=== PATIENT | female | born 1950 | race Caucasian/White ===

== ENCOUNTER 2017-02-16 05:20 | Emergency (ER) | payer MEDICARE, OTHER ==
--- NOTE | 2017-02-16 05:34 | ERNOTE ---
Upper Extremity HPI - General Extremities Pain Location: shoulder: left Time Seen by Provider: 02/16/17 05:25 Source: patient Exam Limitations: no limitations - Immun/Allergies/Home Medications Immunizations: IMMUNIZATION HX Immunizations Up to Date Yes History of Influenza Vaccine No Hx Pneumococcal Vaccination Yes Allergies/Adverse Reactions: Allergies Allergy/AdvReac Type Severity Reaction Status Date / Time methotrexate AdvReac Verified 02/16/17 05:30 Home Medications: HOME MEDICATIONS Atorvastatin Calcium [Lipitor] 10 mg PO DAILY 03/10/12 [Last Taken Unknown] Montelukast Sodium [Singulair] 10 mg PO HS 03/10/12 [Last Taken Unknown] Insulin Glargine,Hum.rec.anlog [Lantus Solostar] 50 unit SQ HS 11/11/13 [Last Taken Unknown] predniSONE [Prednisone] 5 mg PO DAILY 11/11/13 [Last Taken Unknown] Glucagon,Human Recombinant [Glucagen] 1 mg IJ DAILY PRN #1 11/27/14 [Last Taken Unknown] Cholecalciferol (Vitamin D3) [Vitamin D-3] 2,000 unit PO DAILY #90 tablet [Last Taken Unknown] Warfarin Sodium [Coumadin] 4 mg PO SUMOTUTHFR 12/13/14 [Last Taken Unknown] Warfarin Sodium [Coumadin] 6 mg PO WESA 12/13/14 [Last Taken Unknown] Furosemide [Lasix] 80 mg PO DAILY 12/10/15 [Last Taken Unknown] Insulin Lispro [Humalog] 10 units SC AC 12/10/15 [Last Taken Unknown] Adalimumab [Humira] 40 mg SQ Q14D 12/16/16 [Last Taken Unknown] Bupropion HCl [Wellbutrin Xl] 300 mg PO DAILY 12/16/16 [Last Taken Unknown] traMADol HCL [Ultram] 50 mg PO BID PRN #10 tab 02/16/17 [Last Taken Unknown] - History of Present Illness Narrative: Pt had onset of left shoulder pain last evening, no known trauma or injury. Occurred: yesterday Location of Incident: home Severity: moderate Method of Injury: Reports: unknown Loss of Consciousness: Reports: no loss of consciousness Modifying Factors - (Improves): Reports: immobilization Modifying Factors - (Worsens): Reports: movement Other Injuries: Reports: none Review of Systems - Review of Systems Constitutional: Absent: recent illness EYE: Present: no symptoms reported ENT: Present: no symptoms reported Respiratory: Absent: shortness of breath Cardiology: Absent: chest pain Gastrointestinal/Abdominal: Present: no symptoms reported Genitourinary: Present: no symptoms reported Musculoskeletal: Present: See HPI. Absent: back pain, neck pain Skin: Absent: rash Neurological: Present: no symptoms reported Endocrine: Present: no symptoms reported Hematologic/Lymphatic: Present: no symptoms reported Psych: Present: no symptoms reported - Patient's Past Medical History Patient History - Medical: Anxiety, Diabetes Type 2, Renal Disease, Rheumatoid Arthritis Patient History - Cardiac/Respiratory: CHF, COPD, Home O2 Use, CPAP/BiPAP Home Use, Sleep Apnea Patient History - Cancer: No Hx of Cancer Patient History - Surgical Procedures: Colonoscopy, D & C, T & A, Other Patient History - Other: None - Family History Mother Family History - Medical: Diabetes Type 2, Renal Disease Family History - Cardiac/Respiratory: Hypertension Father Family History - Medical: - Social History Living Situations: alone Abuse History: No History of abuse Psych History: Hx of Anxiety Smoking Status: Never smoker Alcohol Use: none Drug Use: none - Immunizations Immunizations Up to Date: Yes Hx Pneumococcal Vaccination: Yes History of Influenza Vaccine: No Physical Exam - Physical Exam General Appearance: Present: wd/wn, alert, no apparent distress Head Exam: Present: normal inspection, no evidence of injury Ears, Nose, Throat: Present: normal ENT inspection Neck: Present: normal inspection, nontender Respiratory: Present: no respiratory distress, no accessory muscle use Back Exam: Present: normal inspection, no vertebral tenderness Extremity Exam: Present: normal except - - left shoulder, decreased range of motion - left shoulder- minimal movement actively, 90 degree flexion passively. , other - left shoulder musculature tender generally. no point tenderness. Neurological Exam: Present: alert, oriented, normal mood/affect, no motor/ sensory deficits Skin Exam: Present: normal color, warm/dry Lymphatic Exam: Present: no adenopathy ED Progress - Vital Signs Vital Signs: Vital Signs 02/16/17 05:22 Temperature 36.6 C Pulse Rate 94 Respiratory 18 Rate Blood Pressure 146/78 O2 Sat by Pulse 96 Oximetry - Progress/Reassessment Chief Complaint: Upper Extremity Injury/Problem Departure Clinical Impression: Strain of left shoulder Qualifiers: Encounter type: initial encounter Qualified Code(s): S46.912A - Strain of unspecified muscle, fascia and tendon at shoulder and upper arm level, left arm , initial encounter - Departure Disposition: Home Follow Up Needed Condition: Good Instructions: Cryotherapy Additional Instructions: See your primary care provider or orthopedics in follow up. Take pain medication as directed and as needed Referrals: Ranjith Ferguson MD [Primary Care Provider] - Prescriptions: traMADol HCL [Ultram] 50 mg PO BID PRN #10 tab PRN Reason: Pain
[2017-02-16] MEDS ORDERED: NALBUPHINE HCL 20 MG/ML AMPUL IM ONE (06:33)
[2017-02-16] MEDS ORDERED: NALBUPHINE HCL 20 MG/ML AMPUL ONE (06:43)
[2017-02-16 06:47] VITALS: BP 144/78
== END 2017-02-16 06:54 | disposition home or self-care (01) ==
LOC: ER 05:20
DX: S46.912A Strain of unspecified muscle, fascia and tendon at shoulder and upper arm level, left arm, initial encounter (principal); Z79.01 Long term (current) use of anticoagulants; I50.9 Heart failure, unspecified; E11.9 Type 2 diabetes mellitus without complications; Z79.4 Long term (current) use of insulin; M06.9 Rheumatoid arthritis, unspecified

== ENCOUNTER 2019-05-15 15:19 | Inpatient (IN) ==
[2019-05-15 16:10] LABS: Hematocrit 40.4 % (37.0-47.0); Mean Cell Volume 86.3 fl (78-100); Mean Corpuscular Hemoglobin 25.6 pg (27-31); Mean Corpuscular Hgb Conc 29.7 g/dl (32-36); Mean Platelet Volume 9.2 fl (8-12.5); Neutrophil # 6.3 K/mm3 (1.3-6.0); Neutrophil % 75.8 % (42-75.0); Platelet Count 267 K/mm3 (150-450); Red Blood Count 4.68 M/mm3 (4.2-5.4); Red Cell Distribution Width 18.5 % (11.5-14.0); White Blood Count 8.3 K/mm3 (4.0-10.5)
[2019-05-15 16:26] LABS: Prothrombin Time (Patient) 13.1 Seconds (9.1-10.7)
[2019-05-15 16:27] LABS: INR 1.34 INR (0.92-1.08)
[2019-05-15 16:34] LABS: Iron 30 mcg/dL (35-120); Transferrin Sat. (% Sat.) 13 % (15-55)
[2019-05-15 16:56] LABS: ALT 13 U/L (19-67); AST 14 U/L (0-48); Albumin * 2.5 gm/dl (3.4-5.0); Alkaline Phosphatase * 103 U/L (50-170); Anion Gap 8.6 mmol/L (6.8-13.8); BNP * 1861 pg/mL (5-325); BUN/Creatinine Ratio 20.1 (9.0-21.6); Bilirubin, Total 0.3 mg/dL (0.0-1.1); Blood Urea Nitrogen 33 mg/dL (3-23); Ca. Corrected For Albumin 10.6 mg/dL (8.4-10.2); Calcium * 9.7 mg/dL (7.9-10.9); Carbon Dioxide 35.2 mmol/L (24-32.6); Chloride 98 mmol/L (97-106); Ferritin 69 ng/mL (8-252); Glucose * 174 mg/dL (70-110); Potassium 3.8 mmol/L (3.4-4.6); Sodium 138 mmol/L (132-142); Troponin I Less than 0.017 ng/mL (0.00-0.10)
--- NOTE | 2019-05-15 17:09 | PN ---
Progess Note - Interim Date: 05/15/19 Time: 17:09 Narrative: 05/15/19 17:16 I saw and examined Edilia Delgado on the [facility] floor on the afternoon of 05/15/2019. Laboratories are still pending. My clinical assessment and plans are not different. My clinical notes will serve as my H&P for this admission.
[2019-05-15] MEDS: ALBUTEROL SULFATE/IPRATROPIUM 3 ML NEBU IH SCH ×2 (18:03→22:14)
[2019-05-15] MEDS ORDERED: FUROSEMIDE 10 MG/ML VIAL IV ONE (19:15)
[2019-05-15] MEDS ORDERED: AZITHROMYCIN 250 MG TABLET PO ONE (19:18)
[2019-05-15] MEDS: PANTOPRAZOLE SODIUM 40 MG in NORMAL SALINE 100 ML IV SCH (21:14)
[2019-05-15] MEDS ORDERED: AZITHROMYCIN 250 MG TABLET ONE (21:44)
[2019-05-15] MEDS ORDERED: FUROSEMIDE 10 MG/ML VIAL ONE (21:45)
[2019-05-15] MEDS ORDERED: INSULIN DETEMIR 100 UNITS/ML VIAL SC ONE (21:45)
[2019-05-15] MEDS: INSULIN DETEMIR 100 UNITS/ML VIAL SC SCH (21:57)
[2019-05-16 00:55] LABS: Urine Bilirubin Negative (NEGATIVE); Urine Blood 25 /ul (NEGATIVE); Urine Ketone Negative (NEGATIVE); Urine Nitrite Negative (NEGATIVE); Urine Protein Negative (NEGATIVE); Urine Specific Gravity 1.015 SP.GR. (1.005-1.010); Urine Urobilinogen Normal (NORMAL)
[2019-05-16 00:56] LABS: Urine Appearance Slightly Cloudy (CLEAR); Urine Bacteria TRACE; Urine Color Yellow; Urine RBC None Seen /hpf (0-5)
[2019-05-16] MEDS: ALBUTEROL SULFATE/IPRATROPIUM 3 ML NEBU IH SCH ×6 (02:56→22:57)
[2019-05-16] MEDS: ACETAMINOPHEN 325 MG TABLET PO PRN ×3 (03:20→23:11)
[2019-05-16 06:57] LABS: Hematocrit 36.3 % (37.0-47.0); Hemoglobin 10.7 gm/dL (12.5-16.0); Mean Cell Volume 85.6 fl (78-100); Mean Corpuscular Hemoglobin 25.2 pg (27-31); Mean Corpuscular Hgb Conc 29.5 g/dl (32-36); Mean Platelet Volume 9.2 fl (8-12.5); Neutrophil # 5.5 K/mm3 (1.3-6.0); Neutrophil % 76.5 % (42-75.0); Platelet Count 221 K/mm3 (150-450); Red Blood Count 4.24 M/mm3 (4.2-5.4); Red Cell Distribution Width 18.4 % (11.5-14.0); White Blood Count 7.2 K/mm3 (4.0-10.5)
[2019-05-16 07:06] LABS: Anion Gap 9.1 mmol/L (6.8-13.8); BUN/Creatinine Ratio 19.3 (9.0-21.6); Calcium * 9.1 mg/dL (7.9-10.9); Carbon Dioxide 34.5 mmol/L (24-32.6); Estimated Creat Clear 19.4; Potassium 3.6 mmol/L (3.4-4.6)
[2019-05-16] MEDS: INSULIN LISPRO 100 UNITS/ML VIAL SC SCH ×4 (07:37→17:15)
[2019-05-16] MEDS: HYDROXYCHLOROQUINE SULFATE 200 MG TABLET PO SCH (08:47)
[2019-05-16] MEDS: CHOLECALCIFEROL 1,000 UNIT CAPSULE PO SCH (08:47)
[2019-05-16] MEDS: ALLOPURINOL 100 MG TABLET PO SCH (08:47)
[2019-05-16] MEDS: FUROSEMIDE 40 MG TABLET PO SCH ×2 (08:47→17:19)
--- NOTE | 2019-05-16 08:49 | PN ---
Progess Note - Interim Date: 05/16/19 Time: 08:39 Narrative: 05/16/19 08:39 Patient has not made BM and stool for occult blood pending. Hb is 10.7. Night nurse noted blood form her wound on her buttock last night. O2 sat in the 93-96 on 5 L NC. she says she uses 4 L NC at home. await stool for occult blood. if negatvie. BRBPR could be just from her wound and will refer her to wound center. coumadin on hold till then. she says she is on it for DVT unsure if it is provoked or unprovoked.complaining vaginal itchiness.
[2019-05-16] MEDS: MICONAZOLE NITRATE VG SCH (08:58)
[2019-05-16] MEDS ORDERED: INSULIN LISPRO 100 UNITS/ML VIAL SC SCH ×2 (09:00→12:00)
[2019-05-16] MEDS ORDERED: DULoxetine HCL 30 MG CAPSULE.SA PO SCH (09:00)
[2019-05-16] MEDS: FLUTICASONE PROPIONATE 120 SPRAY INHALER NS SCH (11:00)
--- NOTE | 2019-05-16 11:38 | PN ---
Subjective - Date and Time Seen Date: 05/16/19 Time: 11:33 Subjective Narrative: Patient has not made BM and stool for occult blood pending. Hb is 10.7. Night nurse noted blood form her wound on her buttock last night. O2 sat in the 93-96 on 5 L NC. she says she uses 4 L NC at home. await stool for occult blood. if negatvie. BRBPR could be just from her wound and will refer her to wound center. coumadin on hold till then. she says she is on it for DVT unsure if it is provoked or unprovoked. complaining vaginal itchiness. ADDENDUM: had hypoglycemic episode. Objective Objective Narrative: Edilia is a 68-year-old white female who was admitted yesterday from my office because of hypoxia with oxygen saturation of 70%. She had perioral cyanosis and her fingertips were bluish. We put her on a CPAP. She is saturating hours 93 to 96% on 5 L of nasal cannula. We will try to decrease that to 4 L per nasal cannula. We will prescribe her Chlortrimazole cream for her perineal rash and her abdominal folds. We will give her Monistat vaginal suppository for her intravaginal itchiness. We will decrease her pre-meal insulin/hold her pre-meal insulin before her lunch meal and will also likely decrease her long-acting insulin tonight as she had hypoglycemic episodes before lunch. She says she makes bowel movement every other day and we are still awaiting to see if will can get stool today for occult blood. There is a chance that her bright red blood is coming from a wound on her left buttock area which likely is from a hematoma formation. Her INR is 1.3 and we have held her Coumadin because of this history of bright red blood.. We may have to refer her to the wound clinic or to general surgery as an outpatient. Her hemoglobin dropped down to 10.7. - Review of Systems Generalized/Overall Review: Reports: Weakness. Denies: Chills, Fever EENTM: Reports: Other - epsitaxis per history. Denies: Blurred Vision Respiratory: Reports: Cough, Shortness of Breath, Wheezing - occasional. Denies: Orthopnea Cardiac: Reports: Edema. Denies: Chest Pain, Palpitations Abdominal: Reports: Bright blood from rectum - per history. Denies: Nausea, Vomiting, Abdominal Pain, Diarrhea Genitourinary Symptoms: Reports: Itching. Denies: Urgency, Frequency, Hematuria Musculoskeletal Complaints: Reports: Joint Pain, Back Pain Neurological: Denies: Headache Skin: Reports: Rash, Other - erythema, legs - Vitals Vitals: Last Vital Signs Temp 36.5 C 05/16/19 06:00 Pulse 96 05/16/19 11:25 Resp 20 05/16/19 11:25 BP 119/60 05/16/19 08:47 Pulse Ox 96 05/16/19 11:15 - Abnormal Lab Findings Abnormal Lab Findings: Abnormal Lab Results 05/15/19 05/15/19 05/15/19 Range/Units 15:51 16:00 16:00 Hgb 12.0 L (12.5-16.0) gm/dL Hct (37.0-47.0) % MCH 25.6 L (27-31) pg MCHC 29.7 L (32-36) g/dl RDW 18.5 H (11.5-14.0) % Neutrophils % 75.8 H (42-75.0) % Lymphocytes % 10.8 L (20-51) % Eosinophils % 4.1 H (0.0-3.0) % Neutrophils # 6.3 H (1.3-6.0) K/mm3 Lymphocytes # 0.90 L (1.5-3.5) k/mm3 PT 13.1 H (9.1-10.7) Seconds INR (Anticoag Therapy) 1.34 H (0.92-1.08) INR pCO2 50.3 H (32.0-45.0) mmHg pO2 58.7 L (83.0-108.0) mmHg HCO3 29.4 H (21.0-28.0) mmol/L Total CO2 31.0 H (19.0-24.0) mmol/L Base Excess 3.5 H (-2.0-3.0) mmol/L ABG O2 Sat (Measured) 89.8 L (94.0-98.0) % Carbon Dioxide (24-32.6) mmol/L BUN (3-23) mg/dL Creatinine (0.4-1.4) mg/dL Est GFR (Non-Af Amer) (60-130) mL/min Random Glucose (70-110) mg/dL Calcium Adj for Albumin (8.4-10.2) mg/dL Iron (35-120) mcg/dL TIBC (260-445) mcg/dL Transferrin % Sat (15-55) % ALT (19-67) U/L B-Natriuretic Peptide (5-325) pg/mL Total Protein (6.2-8.2) gm/dL Albumin (3.4-5.0) gm/dl Urine Blood (NEGATIVE) /ul Ur Leukocyte Esterase (NEGATIVE) /ul Urine WBC (0-5) /hpf 05/15/19 05/15/19 05/15/19 Range/Units 16:00 16:00 17:45 Hgb (12.5-16.0) gm/dL Hct (37.0-47.0) % MCH (27-31) pg MCHC (32-36) g/dl RDW (11.5-14.0) % Neutrophils % (42-75.0) % Lymphocytes % (20-51) % Eosinophils % (0.0-3.0) % Neutrophils # (1.3-6.0) K/mm3 Lymphocytes # (1.5-3.5) k/mm3 PT (9.1-10.7) Seconds INR (Anticoag Therapy) (0.92-1.08) INR pCO2 63.5 H (32.0-45.0) mmHg pO2 (83.0-108.0) mmHg HCO3 35.8 H (21.0-28.0) mmol/L Total CO2 37.8 H (19.0-24.0) mmol/L Base Excess 8.5 H (-2.0-3.0) mmol/L ABG O2 Sat (Measured) (94.0-98.0) % Carbon Dioxide 35.2 H (24-32.6) mmol/L BUN 33 H (3-23) mg/dL Creatinine 1.64 H (0.4-1.4) mg/dL Est GFR (Non-Af Amer) 33 L (60-130) mL/min Random Glucose 174 H (70-110) mg/dL Calcium Adj for Albumin 10.6 H (8.4-10.2) mg/dL Iron 30 L (35-120) mcg/dL TIBC 233 L (260-445) mcg/dL Transferrin % Sat 13 L (15-55) % ALT 13 L (19-67) U/L B-Natriuretic Peptide 1861 H (5-325) pg/mL Total Protein 9.0 H (6.2-8.2) gm/dL Albumin 2.5 L (3.4-5.0) gm/dl Urine Blood (NEGATIVE) /ul Ur Leukocyte Esterase (NEGATIVE) /ul Urine WBC (0-5) /hpf 05/15/19 05/16/19 05/16/19 Range/Units 20:00 00:48 06:38 Hgb 10.7 L (12.5-16.0) gm/dL Hct 36.3 L (37.0-47.0) % MCH 25.2 L (27-31) pg MCHC 29.5 L (32-36) g/dl RDW 18.4 H (11.5-14.0) % Neutrophils % 76.5 H (42-75.0) % Lymphocytes % 11.6 L (20-51) % Eosinophils % (0.0-3.0) % Neutrophils # (1.3-6.0) K/mm3 Lymphocytes # 0.83 L (1.5-3.5) k/mm3 PT (9.1-10.7) Seconds INR (Anticoag Therapy) (0.92-1.08) INR pCO2 56.0 H (32.0-45.0) mmHg pO2 76.4 L (83.0-108.0) mmHg HCO3 31.6 H (21.0-28.0) mmol/L Total CO2 33.4 H (19.0-24.0) mmol/L Base Excess 5.2 H (-2.0-3.0) mmol/L ABG O2 Sat (Measured) (94.0-98.0) % Carbon Dioxide (24-32.6) mmol/L BUN (3-23) mg/dL Creatinine (0.4-1.4) mg/dL Est GFR (Non-Af Amer) (60-130) mL/min Random Glucose (70-110) mg/dL Calcium Adj for Albumin (8.4-10.2) mg/dL Iron (35-120) mcg/dL TIBC (260-445) mcg/dL Transferrin % Sat (15-55) % ALT (19-67) U/L B-Natriuretic Peptide (5-325) pg/mL Total Protein (6.2-8.2) gm/dL Albumin (3.4-5.0) gm/dl Urine Blood 25 H (NEGATIVE) /ul Ur Leukocyte Esterase 25 H (NEGATIVE) /ul Urine WBC 5-10 H (0-5) /hpf 05/16/19 05/16/19 Range/Units 06:38 10:55 Hgb (12.5-16.0) gm/dL Hct (37.0-47.0) % MCH (27-31) pg MCHC (32-36) g/dl RDW (11.5-14.0) % Neutrophils % (42-75.0) % Lymphocytes % (20-51) % Eosinophils % (0.0-3.0) % Neutrophils # (1.3-6.0) K/mm3 Lymphocytes # (1.5-3.5) k/mm3 PT (9.1-10.7) Seconds INR (Anticoag Therapy) (0.92-1.08) INR pCO2 (32.0-45.0) mmHg pO2 (83.0-108.0) mmHg HCO3 (21.0-28.0) mmol/L Total CO2 (19.0-24.0) mmol/L Base Excess (-2.0-3.0) mmol/L ABG O2 Sat (Measured) (94.0-98.0) % Carbon Dioxide 34.5 H (24-32.6) mmol/L BUN 31 H (3-23) mg/dL Creatinine 1.61 H (0.4-1.4) mg/dL Est GFR (Non-Af Amer) 34 L (60-130) mL/min Random Glucose 51 L D (70-110) mg/dL Calcium Adj for Albumin (8.4-10.2) mg/dL Iron (35-120) mcg/dL TIBC (260-445) mcg/dL Transferrin % Sat (15-55) % ALT (19-67) U/L B-Natriuretic Peptide (5-325) pg/mL Total Protein (6.2-8.2) gm/dL Albumin (3.4-5.0) gm/dl Urine Blood (NEGATIVE) /ul Ur Leukocyte Esterase (NEGATIVE) /ul Urine WBC (0-5) /hpf - Exam Constitutional: Present: Alert, Oriented x3, Cooperative, Morbidly obese ENT Exam: Present: hearing grossly normal Neck: Present: supple. Absent: lymphadenopathy (R), lymphadenopathy (L) Respiratory: Present: decreased breath sounds, wheezing - occassional, No rales Cardiovascular/Chest: Present: regular rate, rhythm, no JVD, no murmur Abdomen: Present: Normal bowel sounds, soft, nontender, obese Extremity: Present: no calf tenderness, lower extremity edema Assessment/Plan - Problems/Diagnosis (1) Hypoglycemia Problem: Acute (2) Acute on chronic respiratory failure Problem: Acute Qualifiers: (3) Hypoxia Problem: Acute (4) BRBPR (bright red blood per rectum) Problem: Acute (5) Epistaxis Problem: Acute (6) Anemia Problem: Acute Qualifiers: Anemia type: iron deficiency (7) CHF (congestive heart failure) Problem: Chronic Qualifiers: Heart failure chronicity: chronic (8) COPD (chronic obstructive pulmonary disease) Problem: Chronic Qualifiers: (9) CRF (chronic renal failure) Problem: Chronic Qualifiers: Chronic kidney disease stage: stage 3 (moderate) Qualified Code(s): N18.3 - Chronic kidney disease, stage 3 (moderate) (10) Diabetes mellitus Problem: Chronic Qualifiers: Diabetes mellitus type: type 2 (11) Gout Problem: Chronic Qualifiers: (12) Hyperlipidemia Problem: Chronic Qualifiers: Hyperlipidemia type: pure hypercholesterolemia Qualified Code(s): E78.00 - Pure hypercholesterolemia, unspecified (13) Hypertension Problem: Chronic Qualifiers: Hypertension type: essential hypertension Qualified Code(s): I10 - Essential (primary) hypertension (14) Morbid obesity Problem: Chronic (15) ANTHONY on CPAP Problem: Chronic (16) Rheumatoid arthritis Problem: Chronic Qualifiers: Rheumatoid arthritis location: unspecified site Rheumatoid factor presence: with rheumatoid factor Qualified Code(s): M05.9 - Rheumatoid arthritis with rheumatoid factor, unspecified
[2019-05-16 13:52] LABS: Urine Bilirubin Negative (NEGATIVE); Urine Ketone Negative (NEGATIVE); Urine Nitrite Negative (NEGATIVE); Urine Protein Negative (NEGATIVE); Urine Specific Gravity 1.015 SP.GR. (1.005-1.010); Urine Urobilinogen Normal (NORMAL)
[2019-05-16 14:05] LABS: Urine Appearance Clear (CLEAR); Urine Blood 5 /ul (NEGATIVE); Urine Color Yellow
[2019-05-16 14:06] LABS: Urine Bacteria 1+; Urine RBC 0-5 /hpf (0-5)
[2019-05-16] MEDS: ROSUVASTATIN CALCIUM 20 MG TABLET PO SCH (20:34)
[2019-05-16] MEDS: INSULIN DETEMIR 100 UNITS/ML VIAL SC SCH (20:34)
[2019-05-16] MEDS: CLOTRIMAZOLE 15 APPL TUBE TP SCH (20:35)
[2019-05-16] MEDS ORDERED: INSULIN DETEMIR 100 UNITS/ML VIAL SC ONE (21:00)
[2019-05-16] MEDS: PANTOPRAZOLE SODIUM 40 MG in NORMAL SALINE 100 ML IV SCH (21:18)
[2019-05-17] MEDS: ALBUTEROL SULFATE/IPRATROPIUM 3 ML NEBU IH SCH ×7 (02:58→21:59)
[2019-05-17 06:50] LABS: Anion Gap 7.7 mmol/L (6.8-13.8); BUN/Creatinine Ratio 16.3 (9.0-21.6); Calcium * 9.3 mg/dL (7.9-10.9); Carbon Dioxide 34.2 mmol/L (24-32.6); Potassium 3.9 mmol/L (3.4-4.6)
[2019-05-17 06:52] LABS: Hematocrit 35.2 % (37.0-47.0); Hemoglobin 10.3 gm/dL (12.5-16.0); Mean Cell Volume 86.9 fl (78-100); Mean Corpuscular Hemoglobin 25.4 pg (27-31); Mean Corpuscular Hgb Conc 29.3 g/dl (32-36); Mean Platelet Volume 9.9 fl (8-12.5); Neutrophil # 4.2 K/mm3 (1.3-6.0); Neutrophil % 71.3 % (42-75.0); Platelet Count 235 K/mm3 (150-450); Red Blood Count 4.05 M/mm3 (4.2-5.4); Red Cell Distribution Width 18.6 % (11.5-14.0); White Blood Count 5.9 K/mm3 (4.0-10.5)
[2019-05-17] MEDS: INSULIN LISPRO 100 UNITS/ML VIAL SC SCH ×3 (07:27→17:43)
[2019-05-17] MEDS: FUROSEMIDE 40 MG TABLET PO SCH ×2 (10:05→17:44)
[2019-05-17] MEDS: CLOTRIMAZOLE 15 APPL TUBE TP SCH ×2 (10:05→20:30)
[2019-05-17] MEDS: FLUTICASONE PROPIONATE 120 SPRAY INHALER NS SCH (10:06)
[2019-05-17] MEDS: ALLOPURINOL 100 MG TABLET PO SCH (10:06)
[2019-05-17] MEDS: HYDROXYCHLOROQUINE SULFATE 200 MG TABLET PO SCH (10:06)
[2019-05-17] MEDS: CHOLECALCIFEROL 1,000 UNIT CAPSULE PO SCH (10:06)
[2019-05-17] MEDS: MICONAZOLE NITRATE VG SCH (10:06)
[2019-05-17] MEDS: DULoxetine HCL 20 MG CAPSULE.SA PO SCH (10:06)
[2019-05-17] MEDS ORDERED: BISACODYL 10 MG SUPP.RECT RC ONE (11:00)
[2019-05-17] MEDS ORDERED: BISACODYL 5 MG TABLET.DR PO ONE (11:15)
--- NOTE | 2019-05-17 15:39 | PN ---
Subjective - Date and Time Seen Date: 05/17/19 Time: 15:36 Subjective Narrative: I saw the patient in the morning. She has not had BM since Tuesday and she feels gassy. Objective - Review of Systems Generalized/Overall Review: Denies: Weakness, Chills, Fever EENTM: Reports: Mouth Pain. Denies: Blurred Vision Respiratory: Denies: Cough, Wheezing Cardiac: Reports: Edema. Denies: Chest Pain, Palpitations Abdominal: Reports: Constipation. Denies: Nausea, Vomiting, Abdominal Pain, Bright blood from rectum Genitourinary Symptoms: Denies: Urgency, Frequency Musculoskeletal Complaints: Reports: Joint Pain, Back Pain Neurological: Denies: Anxiety, Depressed Skin: Reports: Rash - Vitals Vitals: Last Vital Signs Temp 36.0 C 05/17/19 10:00 Pulse 103 H 05/17/19 14:25 Resp 20 05/17/19 14:25 BP 128/69 05/17/19 14:25 Pulse Ox 92 L 05/17/19 14:25 - Abnormal Lab Findings Abnormal Lab Findings: Abnormal Lab Results 05/17/19 05/17/19 Range/Units 06:25 06:25 RBC 4.05 L (4.2-5.4) M/mm3 Hgb 10.3 L (12.5-16.0) gm/dL Hct 35.2 L (37.0-47.0) % MCH 25.4 L (27-31) pg MCHC 29.3 L (32-36) g/dl RDW 18.6 H (11.5-14.0) % Lymphocytes % 13.7 L (20-51) % Monocytes % 9.4 H (0.0-9) % Eosinophils % 5.0 H (0.0-3.0) % Lymphocytes # 0.80 L (1.5-3.5) k/mm3 Carbon Dioxide 34.2 H (24-32.6) mmol/L BUN 30 H (3-23) mg/dL Creatinine 1.84 H (0.4-1.4) mg/dL Est GFR (Non-Af Amer) 29 L (60-130) mL/min Random Glucose 261 H D (70-110) mg/dL - Exam Constitutional: Present: Alert, Oriented x3, Cooperative, Morbidly obese ENT Exam: Present: hearing grossly normal Neck: Present: supple. Absent: lymphadenopathy (R), lymphadenopathy (L) Respiratory: Present: decreased breath sounds, No rales, No wheezing Cardiovascular/Chest: Present: regular rate, rhythm, no JVD, no murmur Extremity: Present: no calf tenderness, lower extremity edema Assessment/Plan Plan Narrative: Edilia is a 68-year-old white female admitted for hypoxia, bright red blood per rectum, epistaxis. She is back to her baseline 4 L of nasal cannula saturating above 90%. Except for the first day when the nurse noticed blood from her wound on her left buttocks she has not had any more bleeding. She also has not had any epistaxis. Her hemoglobin is stable at 10.32 to. 10.7. Because of her constipation we did abdominal x-ray which showed diffuse severe fecal retention. We gave her a Dulcolax oral and suppository and had small bowel movement. We gave her bowel movement fleets enema and she had a small to moderate. We will give her milk of molasses enema and we will hopefully discharge her tomorrow if she has more success with this enema. Her stool for occult blood was negative and her bright red blood per rectum likely is from the wound on her left buttock. We will start her on iron pills for iron deficiency anemia as well as a stool laxative once her constipation with fecal retention has resolved. We have been holding her Coumadin since she came. - Problems/Diagnosis (1) Constipation Problem: Acute (2) Hypoglycemia Problem: Resolved (3) Acute on chronic respiratory failure Problem: Acute Qualifiers: (4) Hypoxia Problem: Acute (5) BRBPR (bright red blood per rectum) Problem: Acute (6) Epistaxis Problem: Acute (7) Anemia Problem: Acute Qualifiers: Anemia type: iron deficiency (8) CHF (congestive heart failure) Problem: Chronic Qualifiers: Heart failure chronicity: chronic (9) COPD (chronic obstructive pulmonary disease) Problem: Chronic Qualifiers: (10) CRF (chronic renal failure) Problem: Chronic Qualifiers: Chronic kidney disease stage: stage 3 (moderate) Qualified Code(s): N18.3 - Chronic kidney disease, stage 3 (moderate) (11) Diabetes mellitus Problem: Chronic Qualifiers: Diabetes mellitus type: type 2 (12) Gout Problem: Chronic Qualifiers: (13) Hyperlipidemia Problem: Chronic Qualifiers: Hyperlipidemia type: pure hypercholesterolemia Qualified Code(s): E78.00 - Pure hypercholesterolemia, unspecified (14) Hypertension Problem: Chronic Qualifiers: Hypertension type: essential hypertension Qualified Code(s): I10 - Essential (primary) hypertension (15) Morbid obesity Problem: Chronic (16) ANTHONY on CPAP Problem: Chronic (17) Rheumatoid arthritis Problem: Chronic Qualifiers: Rheumatoid arthritis location: unspecified site Rheumatoid factor presence: with rheumatoid factor Qualified Code(s): M05.9 - Rheumatoid arthritis with rheumatoid factor, unspecified
[2019-05-17] MEDS: ROSUVASTATIN CALCIUM 20 MG TABLET PO SCH (20:30)
[2019-05-17] MEDS: PANTOPRAZOLE SODIUM 40 MG in NORMAL SALINE 100 ML IV SCH (20:31)
[2019-05-17] MEDS ORDERED: INSULIN DETEMIR 100 UNITS/ML VIAL SC SCH (21:00)
[2019-05-18] MEDS: ALBUTEROL SULFATE/IPRATROPIUM 3 ML NEBU IH SCH ×3 (02:51→11:09)
[2019-05-18] MEDS: INSULIN LISPRO 100 UNITS/ML VIAL SC SCH ×2 (07:31→11:25)
--- NOTE | 2019-05-18 08:43 | DS ---
(1) Constipation Problem: Acute (2) Hypoglycemia Problem: Resolved (3) Acute on chronic respiratory failure Problem: Acute Qualifiers: (4) Hypoxia Problem: Acute (5) BRBPR (bright red blood per rectum) Problem: Acute (6) Epistaxis Problem: Acute (7) Anemia Problem: Acute Qualifiers: Anemia type: iron deficiency (8) CHF (congestive heart failure) Problem: Chronic Qualifiers: Heart failure chronicity: chronic (9) COPD (chronic obstructive pulmonary disease) Problem: Chronic Qualifiers: (10) CRF (chronic renal failure) Problem: Chronic Qualifiers: Chronic kidney disease stage: stage 3 (moderate) Qualified Code(s): N18.3 - Chronic kidney disease, stage 3 (moderate) (11) Diabetes mellitus Problem: Chronic Qualifiers: Diabetes mellitus type: type 2 (12) Gout Problem: Chronic Qualifiers: (13) Hyperlipidemia Problem: Chronic Qualifiers: Hyperlipidemia type: pure hypercholesterolemia Qualified Code(s): E78.00 - Pure hypercholesterolemia, unspecified (14) Hypertension Problem: Chronic Qualifiers: Hypertension type: essential hypertension Qualified Code(s): I10 - Essential (primary) hypertension (15) Morbid obesity Problem: Chronic (16) ANTHONY on CPAP Problem: Chronic (17) Rheumatoid arthritis Problem: Chronic Qualifiers: Rheumatoid arthritis location: unspecified site Rheumatoid factor presence: with rheumatoid factor Qualified Code(s): M05.9 - Rheumatoid arthritis with rheumatoid factor, unspecified Date of Discharge:: 05/18/19 Hospital Course: Edilia Delgado is a 68 year old female patient who presented to the clinic 05/14/2019 for a 3 month recheck. The patient complained of possible yeast infection. Also has complaints of her head and nose being very congested and she is short of breath. My RN was only able to get patient's SPO2 up to 70% on 5 liters NC. It was bouncing between the 60's and 70's. The highest we got it was in the 70%. She also had been having nose bleeds that take approximately 20 minutes to stop. She also complained of bright red blood per rectum. She had been having occasional coughing with some sputum production and is associated with wheezing at times. She is on a blood thinner. Her blood work on 05/07/19 showed hemoglobin of 11.5, MCV of 88, platelet of 266, eosinophils of 5.4%, carbon dioxide of 35.5, anion gap of 6.5, creatinine 1.69, GFR of 32, random blood sugar of 202, hemoglobin A1c of 7.3% equivalent to mean blood glucose of 157, albumin of 2.5. Her Hb on 03/02/19 was 12.3. She was admitted for Hypoxia, Acute respiratory failure on chronic respiratory failure. ABG showed acute respiratory acidosis with mild hypoxemia on 5 L NC. She was put on her CPAP with her home settings. She was started on Duonebs, IV antibiotics, IV diuretic. She also was constipated and we gave her enemas. Her stool for occult blood was negative. Her bright red blood per rectiume is likely coming form a wound on her left buttocks with hemartoma formation. Her Coumadin was on hold and her INR is subtherapeutic. Except for the 1st day of admission. She has had no more bleeding from that wound. She is stable now to be discharged . will give her compression stockings. Will refer her to Wound center and outpatient cardiopulmonary rehab. She is homebound due to multiple medical problems. She is morbidly obese and wheelchair-bound for ambulation mostly. She will need nursing care for monitoring of her oxygen saturation, monitoring of the wound healing and change of dressings and will need nursing help for most of her activities of daily living including bathing. She will also need cardiopulmonary rehab as an outpatient. We will also starte her Senokot -s and FeSo4 for her iron deficiency anemia. Procedures Performed: none Results and Findings: Pending Mircobiology Results 05/15/19 22:00 Blood Blood Culture - Preliminary NO GROWTH AFTER 48 HOURS 05/15/19 19:37 Blood Blood Culture - Preliminary NO GROWTH AFTER 48 HOURS 05/16/19 Unknown Urine,Voided Urine Culture - Preliminary No Growth Lab Pending Results 05/15/19 15:51: pCO2 50.3 H, pO2 58.7 L, HCO3 29.4 H, Total CO2 31.0 H, Base Excess 3.5 H, ABG pH 7.39, ABG O2 Sat (Measured) 89.8 L 05/15/19 16:00: WBC 8.3, RBC 4.68, Hgb 12.0 L, Hct 40.4, MCV 86.3, MCH 25.6 L, MCHC 29.7 L, RDW 18.5 H, Plt Count 267, MPV 9.2, Immature Gran % (Auto) 0.40, Immature Gran # (Auto) 0.03, Neutrophils % 75.8 H, Lymphocytes % 10.8 L, Monocytes % 8.7, Eosinophils % 4.1 H, Basophils % 0.2, Nucleated RBC % 0.0, Neutrophils # 6.3 H, Lymphocytes # 0.90 L, Monocytes # 0.7, Eosinophils # 0.3, Absolute Basophils 0.0 05/15/19 16:00: PT 13.1 H, INR (Anticoag Therapy) 1.34 H 05/15/19 16:00: Sodium 138, Plasma Sodium 139, Potassium 3.8, Chloride 98, Carbon Dioxide 35.2 H, Anion Gap 8.6, BUN 33 H, Creatinine 1.64 H, Est GFR (Non- Af Amer) 33 L, BUN/Creatinine Ratio 20.1, Random Glucose 174 H, Calcium 9.7, Calcium Adj for Albumin 10.6 H, Ferritin 69, Total Bilirubin 0.3, AST 14, ALT 13 L, Alkaline Phosphatase 103, Troponin I Less than 0.017, B-Natriuretic Peptide 1861 H, Total Protein 9.0 H, Albumin 2.5 L, Vitamin B12 424, Folate Greater than 20.0 05/15/19 16:00: Iron 30 L, TIBC 233 L, Transferrin % Sat 13 L 05/15/19 16:00: Transferrin 206 05/15/19 17:45: pCO2 63.5 H, pO2 85.2, HCO3 35.8 H, Total CO2 37.8 H, Base Excess 8.5 H, ABG pH 7.37, ABG O2 Sat (Measured) 95.9 05/15/19 20:00: pCO2 56.0 H, pO2 76.4 L, HCO3 31.6 H, Total CO2 33.4 H, Base Excess 5.2 H, ABG pH 7.37, ABG O2 Sat (Measured) 94.7 05/16/19 00:48: Urine Color Yellow, Urine Appearance Slightly cloudy, Urine pH 6.0, Ur Specific [place] 1.015, Urine Protein Negative, Urine Glucose (UA) Negative, Urine Ketones Negative, Urine Blood 25 H, Urine Nitrate Negative, Urine Bilirubin Negative, Urine Urobilinogen Normal, Ur Leukocyte Esterase 25 H, Urine RBC None seen, Urine WBC 5-10 H, Ur Epithelial Cells Trace, Urine Bacteria Trace 05/16/19 06:38: WBC 7.2, RBC 4.24, Hgb 10.7 L, Hct 36.3 L, MCV 85.6, MCH 25.2 L, MCHC 29.5 L, RDW 18.4 H, Plt Count 221, MPV 9.2, Immature Gran % (Auto) 0.30, Immature Gran # (Auto) 0.02, Neutrophils % 76.5 H, Lymphocytes % 11.6 L, Monocytes % 8.6, Eosinophils % 2.6, Basophils % 0.4, Nucleated RBC % 0.0, Neutrophils # 5.5, Lymphocytes # 0.83 L, Monocytes # 0.6, Eosinophils # 0.2, Absolute Basophils 0.0 05/16/19 06:38: Sodium 140, Plasma Sodium 140, Potassium 3.6, Chloride 100, Carbon Dioxide 34.5 H, Anion Gap 9.1, BUN 31 H, Creatinine 1.61 H, Est GFR (Non- Af Amer) 34 L, BUN/Creatinine Ratio 19.3, Random Glucose 97 D, Calcium 9.1 05/16/19 10:55: Random Glucose 51 L D 05/16/19 : Urine Color Yellow, Urine Appearance Clear, Urine pH 6.0, Ur Specific [place] 1.015, Urine Protein Negative, Urine Glucose (UA) Negative, Urine Ketones Negative, Urine Blood 5 H, Urine Nitrate Negative, Urine Bilirubin Negative, Urine Urobilinogen Normal, Ur Leukocyte Esterase 75 H, Urine RBC 0-5, Urine WBC 10-25 H, Ur Epithelial Cells 5-10 H, Urine Bacteria 1+ H, Urine Culture Comments Culture to follow 05/17/19 06:25: WBC 5.9, RBC 4.05 L, Hgb 10.3 L, Hct 35.2 L, MCV 86.9, MCH 25.4 L, MCHC 29.3 L, RDW 18.6 H, Plt Count 235, MPV 9.9, Immature Gran % (Auto) 0.30, Immature Gran # (Auto) 0.02, Neutrophils % 71.3, Lymphocytes % 13.7 L, Monocytes % 9.4 H, Eosinophils % 5.0 H, Basophils % 0.3, Nucleated RBC % 0.0, Neutrophils # 4.2, Lymphocytes # 0.80 L, Monocytes # 0.6, Eosinophils # 0.3, Absolute Basophils 0.0 05/17/19 06:25: Sodium 138, Plasma Sodium 141, Potassium 3.9, Chloride 100, Carbon Dioxide 34.2 H, Anion Gap 7.7, BUN 30 H, Creatinine 1.84 H, Est GFR (Non-Af Amer) 29 L, BUN/Creatinine Ratio 16.3, Random Glucose 261 H D, Calcium 9.3 05/17/19 13:35: Stool Occult Blood Negative Discharge Location: Home Disposition: Home Health Service Home Health Agency: [facility] Home Health Condition: Stable Discharge Activity: Activity as tolerated Discharge Diet: Consistent carbs, Low fat/chol Referrals: Ranjith Ferguson MD [Primary Care Provider] - Additional Patient Instructions (free text): [facility] HH new at discharge, please call and fax discharge orders to them. TCM please. Refer for cardiopulmonary rehab. Refer to Wound center for wound on her left buttock. Home health in the meantime to clean dress wound daily, apply YARED and mepilex. Prescriptions (Any new or edited meds): Albuterol Sulfate/Ipratropium [Duoneb 2.5-0.5MG/3ML Soln] 3 ml INHALATION BID #7 nebu Transmission Status: Pending to [place], [place] Ferrous Sulfate 325 mg PO DAILY #30 tablet.dr Transmission Status: Pending to [place] Fluticasone Propionate [Flonase] 1 spray NS DAILY #1 inhaler Transmission Status: Pending to [place] Insulin Lispro [Humalog] 18 units SC 0700,1200,1700 #1 vial Transmission Status: Pending to [place] Insulin Detemir [Levemir] 55 units SC HS #1 vial Transmission Status: Pending to [place] Clotrimazole [Lotrimin Cream] 1 appl TOPICAL BID #1 tube Transmission Status: Pending to [facility], [place] Compress.stocking,Knee,Reg,Lrg [Relief Knee Open Toe] 1 ea MC DAILY #1 ea Transmission Status: Pending to [place] Sennosides/Docusate Sodium [Senokot-S] 2 tab PO DAILY #60 tab Transmission Status: Pending to [place] Acetaminophen [Tylenol] 650 mg PO Q6H PRN #30 tab PRN Reason: Mild Pain (Pain Scale 1-3) Transmission Status: Pending to [place], [place] Complete Home Medications List: Complete Home Medication List: Adalimumab [Humira] 40 mg SQ Q14D 12/16/16 cholecalciferol (vitamin D3) 2,000 unit capsule 2,000 unit PO DAILY 12/23/17 furosemide 40 mg tablet 40 mg PO BID #180 tab 05/01/18 Durable Medical Equipment See Dose Instructions .ROUTE .MEDSUPPLY #1 ea 08/30/18 wheelchair 0 ea .ROUTE .MEDSUPPLY 09/21/18 pen needle, diabetic 32 gauge x " See Dose Instructions .ROUTE .MEDSUPPLY #400 ea 10/16/18 blood sugar diagnostic See Dose Instructions .ROUTE .MEDSUPPLY #200 ea 11/06/18 lancets See Dose Instructions .ROUTE .MEDSUPPLY #400 ea 11/06/18 Durable Medical Equipment See Dose Instructions .ROUTE .MEDSUPPLY #1 ea 11/17/18 atorvastatin 40 mg tablet 40 mg PO HS #90 tab 11/28/18 warfarin 2 mg tablet 2 mg PO DAILY #90 tab 12/21/18 allopurinol 100 mg tablet 100 mg PO DAILY #90 tab 12/25/18 Contour Next EZ Meter See Dose Instructions .ROUTE .MEDSUPPLY #1 ea NS 02/06/19 DULoxetine HCL [Cymbalta] 60 mg PO DAILY 05/15/19 Hydroxychloroquine Sulfate 200 mg PO DAILY 05/15/19 Acetaminophen [Tylenol] 650 mg PO Q6H PRN #30 tab 05/18/19 Albuterol Sulfate/Ipratropium [Duoneb 2.5-0.5MG/3ML Soln] 3 ml INHALATION BID #7 nebu 05/18/19 Clotrimazole [Lotrimin Cream] 1 appl TOPICAL BID #1 tube 05/18/19 Compress.stocking,Knee,Reg,Lrg [Relief Knee Open Toe] 1 ea MC DAILY #1 ea 05/18/19 Ferrous Sulfate 325 mg PO DAILY #30 tablet.dr 05/18/19 Fluticasone Propionate [Flonase] 1 spray NS DAILY #1 inhaler 05/18/19 Insulin Detemir [Levemir] 55 units SC HS #1 vial 05/18/19 Insulin Lispro [Humalog] 18 units SC 0700,1200,1700 #1 vial 05/18/19 Miconazole Nitrate [Monistat-3] 1 supp VAGINAL DAILY box 05/18/19 Sennosides/Docusate Sodium [Senokot-S] 2 tab PO DAILY #60 tab 05/18/19
[2019-05-18] MEDS: HYDROXYCHLOROQUINE SULFATE 200 MG TABLET PO SCH (11:17)
[2019-05-18] MEDS: ALLOPURINOL 100 MG TABLET PO SCH (11:17)
[2019-05-18] MEDS: DULoxetine HCL 20 MG CAPSULE.SA PO SCH (11:17)
[2019-05-18] MEDS: CHOLECALCIFEROL 1,000 UNIT CAPSULE PO SCH (11:17)
[2019-05-18] MEDS: MICONAZOLE NITRATE VG SCH (11:18)
[2019-05-18] MEDS: CLOTRIMAZOLE 15 APPL TUBE TP SCH (11:18)
[2019-05-18] MEDS: FLUTICASONE PROPIONATE 120 SPRAY INHALER NS SCH (11:18)
[2019-05-18] MEDS: FUROSEMIDE 40 MG TABLET PO SCH (11:18)
[2019-05-18 11:20] VITALS: BP 109/60
== END 2019-05-18 12:45 | disposition home health service (06) | DRG 189 ==
LOC: MS 15:19
PROVIDERS: ADMIT Internal Medicine; ATTEND Internal Medicine
CPT/HCPCS: 36415; 36600; 71010; 71045; 74019; 74020; 80048; 80053; 81001; 82272; 82607; 82728; 82746; 82803; 82947; 83519; 83540; 83550; 83880; 84466; 84484; 85025; 85610; 87040; 87081; 87086; 93005; 94640; 94660; 94664